=== PATIENT | male | born 1980 | race African-American/Black ===

== ENCOUNTER 2024-08-03 01:35 | Observation (INO) | payer OTHER ==
[2024-08-03 02:50] LABS: BASO % 0.5 % (0-2.0); HEMATOCRIT 38.1 % (35.4-49); HEMOGLOBIN 12.9 GM/dL (11.7-16.9); LYMPH % 23.4 % (8-40); MCH 28.8 pg (25.7-33.7); MCHC 33.9 g/dl (32.0-35.9); MEAN CELL VOLUME 85.2 fl (80-96); MEAN PLT VOLUME 7.4 fl (7.5-11.1); MONO % 7.9 % (3.8-10.2); NEUT % 67.2 % (42.8-82.8); PLATELET COUNT 289 10^3/uL (134-434); RBC 4.47 M/mm3 (4.00-5.60); RDW 13.8 % (11.9-15.9); WHITE BLOOD COUNT 7.3 K/mm3 (4.0-10.0)
[2024-08-03 03:09] LABS: CALCIUM 9.2 mg/dL (8.5-10.1)
[2024-08-03 03:10] LABS: MAGNESIUM 2.1 mg/dL (1.8-2.4)
[2024-08-03 03:13] LABS: CREATININE 1.2 mg/dL (0.55-1.3); PHOSPHOROUS 3.4 mg/dL (2.5-4.9)
[2024-08-03 03:14] LABS: BILIRUBIN,TOTAL 0.5 mg/dL (0.2-1); TOT PROT 7.7 g/dl (6.4-8.2)
[2024-08-03 06:21] LABS: INR 1.07 (0.83-1.09); PROTHROMBIN TIME (PATIENT) 12.3 SEC (9.7-13.0)
[2024-08-03 06:24] LABS: ACTIVATED PTT 32.5 SECONDS (25.2-36.5)
[2024-08-03] MEDS: METOPROLOL TARTRATE 25 MG TABLET (FP) PO SCH (10:39)
[2024-08-03] MEDS: ASPIRIN 81 MG CHEWABLE TABLETS PO SCH (10:39)
[2024-08-03] MEDS: TICAGRELOR 90 MG TABLET PO SCH (10:39)
[2024-08-03] MEDS: LISINOPRIL 5 MG TABLET PO SCH (10:39)
[2024-08-03 11:10] VITALS: RESP 18
[2024-08-03 11:54] LABS: BASO % 0.3 % (0-2.0); EOS % 0.4 % (0-4.5); HEMATOCRIT 38.5 % (35.4-49); HEMOGLOBIN 12.9 GM/dL (11.7-16.9); LYMPH % 19.4 % (8-40); MCH 28.7 pg (25.7-33.7); MCHC 33.6 g/dl (32.0-35.9); MEAN CELL VOLUME 85.2 fl (80-96); MEAN PLT VOLUME 7.7 fl (7.5-11.1); NEUT % 74.9 % (42.8-82.8); PLATELET COUNT 288 10^3/uL (134-434); RBC 4.52 M/mm3 (4.00-5.60); RDW 13.9 % (11.9-15.9); WHITE BLOOD COUNT 7.5 K/mm3 (4.0-10.0)
[2024-08-03 12:12] LABS: POTASSIUM 3.9 mmol/L (3.5-5.1)
[2024-08-03 12:15] LABS: ALBUMIN 4.1 g/dl (3.4-5.0); BLOOD UREA NITROGEN 21.2 mg/dL (7-18); CALCIUM 9.3 mg/dL (8.5-10.1); MAGNESIUM 2.1 mg/dL (1.8-2.4)
[2024-08-03 12:19] LABS: PHOSPHOROUS 2.8 mg/dL (2.5-4.9)
[2024-08-03 12:20] LABS: BILIRUBIN,TOTAL 0.4 mg/dL (0.2-1); TOT PROT 7.6 g/dl (6.4-8.2)
[2024-08-03 12:29] VITALS: BMI 28.8
[2024-08-03 14:46] VITALS: BP 131/86; PULSE 71; TEMP 98.2
[2024-08-03] MEDS ORDERED: ATORVASTATIN CA 80 MG TABLET (FP) PO SCH (22:00)
== END 2024-08-03 17:04 | disposition home or self-care (01) ==
LOC: JER 01:35 → JERBED 04:17 → UNDOADMOB 04:17 → INTOOBSV 06:11 → OBSVTOIN 06:11 → J4W 07:56 → JERBED 07:56 → J4W 09:09 → JERBED 09:09
PROVIDERS: ADMIT Internal Medicine; ATTEND Internal Medicine
DX: R74.8 Abnormal levels of other serum enzymes (principal); R42 Dizziness and giddiness; R25.2 Cramp and spasm; Z95.5 Presence of coronary angioplasty implant and graft
CPT/HCPCS: 0241U-QW; 36415; 71046-TC-FY; 80053; 82550; 82553; 83735; 84100; 84484; 85025; 85610; 85730; 86850; 86900; 86901; 93005; 93010; 93306-TC; 99285-25; G0378